=== PATIENT | female | born 1985 | race Caucasian/White ===

== ENCOUNTER 2025-03-17 12:50 | Emergency (ER) | payer BC, SELFPAY ==
[2025-03-17 12:51] VITALS: BP 132/87
[2025-03-17 13:24] VITALS: BMI 23.3
[2025-03-17 13:46] LABS: Hematocrit 44.7 % (37.0-47.0); Hemoglobin 15.1 g/dL (12.0-16.0); Mean Corp Hgb Conc. 33.8 g/dL (33.0-37.0); Mean Corpuscular Volume 91.4 fL (81.0-99.0); Nucleated Red Blood Cells % 0 %; Platelet Count 187 10^3/uL (130-400); Red Cell Dist. Width 12.4 % (11.5-14.5)
[2025-03-17 14:04] LABS: ALT (SGPT) 19 U/L (0-35); AST (SGOT) 23 U/L (14-36); Albumin 4.6 g/dl (3.5-5.0); Alkaline Phosphatase 42 U/L (38-126); Blood Urea Nitrogen 9 mg/dl (7-17); Calcium 9.5 mg/dl (8.4-10.2); Carbon Dioxide 27 mmol/L (22-30); Chloride 103 mmol/L (98-107); Estimated Creatinine Clearance 94 ml/min; Glucose 86 mg/dl (70-99); Potassium 3.9 mmol/L (3.5-5.1); Sodium 133 mmol/L (135-145); Total Protein 7.2 g/dl (6.3-8.2); eGFR > 60.00
[2025-03-17] MEDS: NSS 1000 IV (14:21)
[2025-03-17 14:52] LABS: Vitamin B12 865 pg/ml (239-931)
[2025-03-17 15:15] VITALS: BP 124/83
[2025-03-17 15:17] VITALS: BP 124/83
[2025-03-17 15:23] LABS: Magnesium 2.0 mg/dl (1.6-2.3)
[2025-03-17 15:33] VITALS: BP 123/77; BP 126/93; BP 137/99; PULSE 86; PULSE 88
[2025-03-17 15:50] LABS: COVID-19 Antigen Negative (Negative)
[2025-03-17 15:56] LABS: Beta HCG Quantitative < 2.39 mIU/ml
--- NOTE | 2025-03-17 15:56 | ED.GENMED ---
History of Present Illness
<Mar Guerra PA-C - Last Filed: 03/18/25 22:16>
General
Chief Complaint: Abdominal Symptoms
Source: patient
Exam Limitations: none
Time Seen by Provider: 03/17/25 14:22
Nursing documentation reviewed up to this point in time: agreed with
History of Present Illness
History of Present Illness:
Patient is a 39-year-old female who presents to the emergency department with multiple complaints. Patient describes a pressure/fogginess in her right head over the past 1-2 weeks. She states her head feels 'heavy' and lightheaded. She denies any
true spinning sensation. Occasionally feels some blurred vision. Yesterday, she started with persistent nausea which was worse today initially prompting visit to the emergency department. She denies any diplopia, dysphagia, dysarthria.
She was 2 weeks late for her menstrual cycle and had a positive at-home test recently and was followed up with a blood test which was extremely low. She has since had a few serum hCG test which have been negative through her [employer]. She
denies any abdominal pain, vaginal bleeding.
She also reports multiple months of intermittent twitching of her muscles. This occurs randomly and is not clearly correlated to certain times a day or exertion. She does take magnesium supplements at home. She tries to stay well-hydrated.
Patient became concerned with missed period and pressure and had that she may have a pituitary adenoma. She has scheduled an appointment with a neurologist however it is not until May.
Review of Systems
<Mar Guerra PA-C - Last Filed: 03/18/25 22:16>
Review of Systems
Allergies reviewed?: Yes
All Other Systems: ROS reviewed and negative except as documented in HPI and ROS
Phy Exam
<Mar Guerra PA-C - Last Filed: 03/18/25 22:16>
Physical Exam
Physical Exam:
Vitals: Patient's vital signs are stable. Afebrile
General: Patient is in no distress
Skin: Warm and dry, no rashes or lesions
Head: Normocephalic, atraumatic
Eyes: Sclera nonicteric. Pupils equal round and reactive to light bilaterally. EOMs intact. No nystagmus.
Throat: Protecting airway
Neck: Normal ROM, no cervical spine tenderness, no meningismus
Cardiac: Regular rate and rhythm, no murmurs.
Pulm: Normal respiratory effort. Lungs clear bilaterally
Abdomen: No abdominal tenderness.
Extremities: No evidence of cyanosis or edema. Strength 5/5 in bilateral upper and lower extremities. Sensation intact
Neuro: AAOx3. CN II-XII grossly intact. No facial droop or asymmetry. Normal [id number] no focal neurologic deficits.
Psychiatric: Normal affect.
Course
<Mar Guerra PA-C - Last Filed: 03/18/25 22:16>
Orders/Labs/Results
Orders:
Orders
03/17/25 13:28
Beta HCG Quantitative Urgent
Comment: ADD ON
Complete Blood Count/With Diff Urgent
Comprehensive Metabolic Panel Urgent
Creatine Phosphokinase Urgent
Magnesium Urgent
TSH Reflex To Free T4 Urgent
Comment: ADD ON
03/17/25 13:38
B12 [Vitamin B12] Urgent
03/17/25 14:20
0.9% Sodium Chloride 1000 ml [Nss] 1,000 ml IV BOLUS
03/17/25 14:51
Add On- LAB Urgent
Tests Added?: hcg quantitative, magnesium, cpk
Orthostatic VS- Treatment ONCE
Acetaminophen [Tylenol] 650 mg PO NOW STA
03/17/25 15:12
COVID-19 Antigen Urgent
Source: Nasal Swab
Influenza A+B Rapid Molecular Urgent
BARBARA Source: Nasal Swab
Specimen Description:
03/17/25 16:20
Add On- LAB Urgent
Tests Added?: TSH w/ reflex to T4
CT Head W/o Iv Contrast Urgent
Comment:
Reason For Exam: Right sided head pressure, lightheadedness
03/17/25 17:56
Metoclopramide [Reglan] 10 mg IV NOW STA
03/17/25 18:14
Diphenhydramine [Benadryl] 50 mg .ROUTE .STK-MED ONE
03/17/25 18:15
Diphenhydramine [Benadryl] 25 mg IV NOW STA
Abnormal Lab Results
03/17/25
13:28
Absolute Neuts (auto) 6.7 H 10^3/uL
(1.4-6.5)
Absolute Lymphs (auto) 1.1 L 10^3/uL
(1.2-3.4)
Neutrophils % 80.9 H %
(42.2-75.2)
Lymphocytes % 13.1 L %
(20.5-51.1)
Sodium 133 L mmol/L
(135-145)
03/17/25 13:28
03/17/25 13:28
Vital Signs
Initial and Last Documented VS:
Initial Vital Signs
Temp Pulse Resp BP Pulse Ox
98.3 F 92 16 132/87 100
03/17/25 12:51 03/17/25 12:51 03/17/25 12:51 03/17/25 12:51 03/17/25 12:51
Last Documented Vital Signs
Temp Pulse Resp BP Pulse Ox
98.4 F 67 19 108/78 96
03/17/25 16:00 03/17/25 19:00 03/17/25 19:00 03/17/25 19:00 03/17/25 19:00
<Chip Galdamez, DO - Last Filed: 03/17/25 17:57>
Orders/Labs/Results
Orders:
Orders
03/17/25 13:28
Beta HCG Quantitative Urgent
Comment: ADD ON
Complete Blood Count/With Diff Urgent
Comprehensive Metabolic Panel Urgent
Creatine Phosphokinase Urgent
Magnesium Urgent
TSH Reflex To Free T4 Urgent
Comment: ADD ON
03/17/25 13:38
B12 [Vitamin B12] Urgent
03/17/25 14:20
0.9% Sodium Chloride 1000 ml [Nss] 1,000 ml IV BOLUS
03/17/25 14:51
Add On- LAB Urgent
Tests Added?: hcg quantitative, magnesium, cpk
Orthostatic VS- Treatment ONCE
Acetaminophen [Tylenol] 650 mg PO NOW STA
03/17/25 15:12
COVID-19 Antigen Urgent
Source: Nasal Swab
Influenza A+B Rapid Molecular Urgent
BARBARA Source: Nasal Swab
Specimen Description:
03/17/25 16:20
Add On- LAB Urgent
Tests Added?: TSH w/ reflex to T4
CT Head W/o Iv Contrast Urgent
Comment:
Reason For Exam: Right sided head pressure, lightheadedness
03/17/25 17:56
Metoclopramide [Reglan] 10 mg IV NOW STA
03/17/25 18:14
Diphenhydramine [Benadryl] 50 mg .ROUTE .STK-MED ONE
03/17/25 18:15
Diphenhydramine [Benadryl] 25 mg IV NOW STA
Abnormal Lab Results
03/17/25
13:28
Absolute Neuts (auto) 6.7 H 10^3/uL
(1.4-6.5)
Absolute Lymphs (auto) 1.1 L 10^3/uL
(1.2-3.4)
Neutrophils % 80.9 H %
(42.2-75.2)
Lymphocytes % 13.1 L %
(20.5-51.1)
Sodium 133 L mmol/L
(135-145)
03/17/25 13:28
03/17/25 13:28
Vital Signs
Initial and Last Documented VS:
Initial Vital Signs
Temp Pulse Resp BP Pulse Ox
98.3 F 92 16 132/87 100
03/17/25 12:51 03/17/25 12:51 03/17/25 12:51 03/17/25 12:51 03/17/25 12:51
Last Documented Vital Signs
Temp Pulse Resp BP Pulse Ox
98.4 F 67 19 108/78 96
03/17/25 16:00 03/17/25 19:00 03/17/25 19:00 03/17/25 19:00 03/17/25 19:00
<Mar Guerra PA-C - Last Filed: 03/18/25 22:16>
MDM/Problems Addressed
Differential Diagnosis Includes:
Not limited to: Early , viral illness, acute dehydration, electrolyte abnormality, hypothyroidism, vertigo, intracranial mass, etc.
MDM/Problems Addressed:
39-year-old female presenting with vague symptoms, including one � two weeks of right sided head pressure and lightheadedness, now with nausea. She did have positive at home test, however, has since had negative serum HCGs.
No abnormal vaginal bleeding. No fevers or abdominal pain. Vital signs as above. On exam, patient is alert and oriented without any focal neurologic deficits. She has equal strength and sensation in bilateral upper and lower extremities. Normal
cerebellar exam. No nystagmus noted.
Work up in ED unremarkable including basic labs, electrolytes, TSH, viral studies, noncontrast CT head. Her hCG was negative in the emergency department. It is unclear whether patient may have experienced a chemical .
Symptoms vague, may reflect peripheral vertigo with atypical presentation. She was given dose of reglan/ benadryl in emergency department and liter of IV fluids. Possibly underlying viral illness.
She remains non-toxic. She is not ataxic. No evidence of acute emergent pathology today. Ultimately, feel safe for discharge home with outpatient f/u and strict return precautions. Will send prescription for meclizine. Discussed outpatient
vestibular therapy. Patient seen with attending physician.
Chronic conditions affecting care:
N/A
Acute Exacerbation and/or Progression of Chronic Illness:
N/A
<Mar Guerra PA-C - Last Filed: 03/18/25 22:16>
*Radiology
Radiology exam reviewed: radiology read reviewed
*Pulse Oximetry
SaO2: 98
Oxygen Mode of Delivery: Room air
Patient hypoxic: no
*EKG
Interpreted by ED Provider?: NA
*Accounting Office Manager Interpretation
Rate: Accounting Office Manager- N/A
*Critical Care Note
Total Time (30-74mins, 75-104mins- exclusive of procedures): Not Applicable
<Mar Guerra PA-C - Last Filed: 03/18/25 22:16>
Patient Management
Discussion with other providers: Supervisor Liquid Yeast (Discussed with attending physician)
ED Attending Note
<Mar Guerra PA-C - Last Filed: 03/18/25 22:16>
-
Portions of this chart may have been created with voice recognition software.� Occasional wrong word or��sound alike� substitutions may have occurred due to the inherent limitations of voice recognition software.
<Chip Galdamez DO - Last Filed: 03/17/25 17:57>
ED Attending Note
Patient seen and examined by attending physician: Yes
I performed the substantive portion of visit, reviewed & personally made and approve the management plan that is documented in note by myself or EVA.: Yes
ED Attending Note:
Seen with PA examined independently 39-year-old female fullness in her head somewhat worse with position some dizziness, recent positive test, no abnormal bleeding other period is late, levels reviewed with the patient quantitative level
reviewed here suspected was a chemical reviewed with the patient again she has no abdominal pain or bleeding CT noted report pending
Discharge Plan
Departure
Patient Disposition: Home (Routine Discharge)
Date of Disposition: 03/17/25
Time of Disposition: 18:59
Patient with high blood pressure during this ER visit?: Yes
Condition: Good
Covid-19: Negative COVID-19
Discharge Problem:
Nausea, Dizziness
Instructions: Dizziness in adults - ED (DC)
Prescriptions:
New
meclizine 25 mg tablet
25 mg PO BID PRN (Reason: dizziness) Qty: 10 0RF
Referrals:
Familia Riggins MD [Family Provider, [facility]] - Follow up in 5-7 days
Activity Restrictions/Additional Instructions:
RETURN TO THE EMERGENCY DEPARTMENT WITH ANY SEVERE HEADACHE OR NECK PAIN, PERSISTENT DIZZINESS, LOSS OF BALANCE, CHANGES IN MENTAL STATUS, INTRACTABLE NAUSEA/VOMITING, VISUAL CHANGES, WORSENING IN CURRENT SYMPTOMS, OR ANY OTHER CONCERNS
- As discussed, your lab work in the emergency department showed no acute abnormalities. Your test was negative. Your head CT showed no acute findings.
- The underlying cause of your symptoms is not clear. This may be peripheral vertigo. Please stay well-hydrated. A prescription for meclizine has been sent to your pharmacy which you can try. Follow-up for outpatient vestibular therapy.
- You should follow-up with your [employer] your late period.
- If headache persists, you may require outpatient MRI of your brain-please keep appointment with neurology
Monitor your symptoms closely and return to the emergency department with any acute worsening/new symptoms or any other concerns
Interventions
Interventions:
*Risk Screen - Suicide Last Done: 03/17/25 13:24
*General Assessment Last Done: 03/17/25 13:24
*Neglect/Abuse Screening Last Done: 03/17/25 13:24
*ED- Fall Risk Assessment Last Done: 03/17/25 19:11
*ED COVID-19 Vaccine History Last Done: 03/17/25 13:24
*ED Influenza Vaccine History Last Done: 03/17/25 13:24
*Nursing Disposition Last Done: 03/17/25 19:11
QA-Crgnca-Yqmtuhdmqf Assessment Last Done: 03/17/25 13:25
Discharge Date and Time
Discharge Date/Time: 03/17/25 19:12
Print Language: UGANDAN
[2025-03-17] MEDS: REGLAN 10 MG IV (18:06)
[2025-03-17] MEDS: BENADRYL 25 MG IV (18:15)
[2025-03-17 19:00] VITALS: BP 108/78
== END 2025-03-17 19:12 | disposition home or self-care (01) ==
LOC: EMR 12:50
PROVIDERS: Emergency Medicine; Physician Assistant; EMERGENCY PHYSICIAN Emergency Medicine; FAMILY PHYSICIAN Family Medicine
DX: R42 Dizziness and giddiness (principal); R51.9 Headache, unspecified; Z11.52 Encounter for screening for COVID-19
CPT/HCPCS: 96374; 96375; 96361; 99284; 70450; 80053; 82550; 82607; 83735; 84443; 84702; 85025; 87502; 87811